=== PATIENT | female | born 1990 | race Caucasian/White ===

== ENCOUNTER → 2018-09-03 | Outpatient (CLI) | payer OTHER ==
--- NOTE | 2018-09-03 14:01 | RADIOLOGY IMAGING REPORT ---
FACILITY: [facility] - [place] PATIENT NAME: Shelli Rob : 1990 MR: [id number] V: [id number] EXAM DATE: ORDERING PHYSICIAN: JEOVANNY BALBUENA TECHNOLOGIST: Location: [facility] [place] Patient: Shelli Rob : 1990 Visit/Account:[id number] Date of Sevice: 09/03/2018 [facility] [place] TRANVAGINAL NON-OB HISTORY: pelvic pain TECHNIQUE: Transvaginal ultrasound pelvis. COMPARISON: None. FINDINGS: Uterus: ; 7 cm length x 2.6 cm AP x 2.2 cm transverse. Myometrium: Unremarkable. Endometrium: An IUD appears to be in good position within the endometrial canal; double thickness 3 m m. Cervix: Grossly negative. Ovaries: Right - 4.1 x 4.7 x 2.2 cm. There is a 3 x 1.1 x 3.2 cm cyst within the right ovary Left - 2.9 x 2.3 x 1.7 cm Blood flow is documented in each ovary by duplex Doppler ultrasound. Adnexa: Grossly unremarkable. Free pelvic fluid: None. IMPRESSION: IUD appears to been good position within the endometrial canal There is a 3 x 1.1 x 3.2 cm cyst within the right ovary. Report Dictated By: Sujata Wang MD at 09/03/2018 1:53 PM Report E-Signed By: Sujata Wang MD at 09/03/2018 1:57 PM WSN:[id number]
== END ==
LOC: RAD 11:03
PROVIDERS: ATTEND Obstetrics & Gynecology
DX: R10.2 Pelvic and perineal pain (principal); N83.201 Unspecified ovarian cyst, right side